=== PATIENT | female | born 1970 | race Caucasian/White ===

== ENCOUNTER → 2016-07-20 | Outpatient (REF) | payer MEDICARE, MEDICAID, SELFPAY | LOC: LAB 14:09 | PROVIDERS: Visit Provider Orthopaedic Surgery | DX: T84.59XD Infection and inflammatory reaction due to other internal joint prosthesis, subsequent encounter (principal) | CPT/HCPCS: 80202; 82565; 84460; 85025; 85651; 99058 ==

== ENCOUNTER 2019-08-07 11:47 | Emergency (ER) | payer MEDICARE, MEDICAID, SELFPAY ==
[2019-08-07 11:52] VITALS: BP 124/88; PULSE 84; RESP 18; TEMP 36.4; O2SAT 99
[2019-08-07 11:59] VITALS: BP 124/88; PULSE 84; RESP 18; TEMP 36.4; O2SAT 99; BMI 25.8
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
[2019-08-07] MEDS: TET,DIPH,PERTUSS(ACELL),VAC/PF 0.5 ML SYRINGE IM (12:44)
[2019-08-07] MEDS: KETOROLAC 60 MG/2 ML VIAL 30 MG IM (13:46)
[2019-08-07 14:10] VITALS: BP 133/76; PULSE 73; RESP 16; O2SAT 100
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
== END 2019-08-07 14:15 | disposition home or self-care (01) ==
PROVIDERS: Emergency Provider Nurse Practitioner Family; PCP Nurse Practitioner Family
DX: M54.2 Cervicalgia (principal); M25.562 Pain in left knee; M25.561 Pain in right knee; S09.90XA Unspecified injury of head, initial encounter; V89.2XXA Person injured in unspecified motor-vehicle accident, traffic, initial encounter; Z23 Encounter for immunization
CPT/HCPCS: 70450; 72125; 73560; 90471; 96372; 99283; 99284; 90715; J1885

== ENCOUNTER 2019-10-04 22:57 | Emergency (ER) | payer MEDICARE, MEDICAID, SELFPAY ==
[2019-10-04 23:03] VITALS: BP 131/86; PULSE 75; RESP 20; TEMP 36.4; O2SAT 98
--- NOTE | 2019-10-04 23:05 | ED.GENADULT ---
HPI - General Adult General Chief complaint: Extremity Injury, Lower Stated complaint: Possible femur fracture Time Seen by Provider: 10/04/19 23:04 History of Present Illness HPI narrative: 49-year-old woman with a history of bipolar disorder and asthma as well as multiple complicating orthopedic surgeries due to a left hip prosthesis presents with left femur pain concerned that the femurs broken. She initially had a left hip prosthesis placed, shortly after leaving hospital she had a periprosthetic fracture. A 2nd prosthesis with a longer femur section was then placed and developed osteomyelitis. She had multiple revision surgeries eventually had the entire prosthesis removed and has no hip joint on the left side. Has a right prosthetic hip as well. 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 She called 911 and was transported here for further evaluation. Her initial surgeries were done by orthopedic surgeon down at [facility], with whom she no longer follows up. Related Data Home Medications Medication Instructions Recorded Confirmed albuterol sulfate [Ventolin HFA] 1 puff INHALATION PRN PRN 08/07/19 08/07/19 cyclobenzaprine 10 mg PO Q4-6H PRN 08/07/19 08/07/19 divalproex 250 mg PO BID 08/07/19 08/07/19 quetiapine 400 mg PO DAILY 08/07/19 08/07/19 trazodone 300 mg PO DAILY 08/07/19 08/07/19 Previous Rx's Medication Instructions Recorded oxycodone-acetaminophen 1 - 2 tab PO Q4-6H PRN #40 tab MDD 10/05/19 8 tabs Allergies Allergy/AdvReac Type Severity Reaction Status Date / Time No Known Drug Allergies Allergy Verified 08/07/19 13:39 Review of Systems Review of Systems Narrative: Denies ? fever ? cough ? cold ? chills ? chest pain ? dyspnea ? orthopnea ? wheezing ? abdominal pain ? change to bowel or bladder habits ? nausea vomiting ? skin changes ? rashes Patient History Medical History (Updated 10/05/19 @ 00:12 by Sole Salazar MD) Asthma (Acute) Bipolar 1 disorder (Acute) Surgical History (Updated 10/05/19 @ 00:13 by Sole Salazar MD) History of hip surgery (Acute) History of hip surgery (Acute) Status post Girdlestone procedure (Acute) Social History Smoking Status: Current every day smoker Smoking Status: Current every day smoker tobacco type: cigarettes alcohol intake frequency: 0-2 drinks per day Substance Use Type: does not use Exam Narrative Exam Narrative: General: Alert appropriate in no acute distress Respiratory: Able to speak in full sentences, no obvious respiratory distress Skin: No obvious rashes, warm and dry Neurologic: Grossly intact no obvious asymmetries or abnormalities Psych, appropriate insight and affect, cooperative Extremity: Multiple surgical sites with multiple calcium deposits over the lower portion of leg. Neurovascularly intact. Step-off deformity the distal femur, left side Initial Vital Signs Initial Vital Signs: Vital Signs Temperature 97.5 F L 10/04/19 23:03 Pulse Rate 75 10/04/19 23:03 Respiratory Rate 20 10/04/19 23:03 Blood Pressure 131/86 10/04/19 23:03 Pulse Oximetry 98 10/04/19 23:03 Course Orders Ordered: ED Orders 10/04/19 23:12 XR femur LT min 2V Stat Discontinued Medications Ibuprofen (Advil) 400 mg PO NOW ONE Stop: 10/05/19 00:04 Last Admin: 10/05/19 00:07 Dose: 400 mg Documented by: Oxycodone/Acetaminophen (Percocet 5/325) 2 tab PO NOW ONE Stop: 10/05/19 00:04 Last Admin: 10/05/19 00:07 Dose: 2 tab Documented by: Oxycodone/Acetaminophen (Endocet 5/325 Prepack) 1 bottle MISC SEEINSTR ONE Stop: 10/05/19 00:04 Last Admin: 10/05/19 00:07 Dose: 1 bottle Documented by: Vital Signs Vital signs: Vital Signs - 8 hr 10/04/19 23:03 10/04/19 23:20 Temperature 97.5 F L Pulse Rate 75 Pulse Rate [Left Dorsalis Pedis] 75 Respiratory Rate 20 Blood Pressure 131/86 Pulse Oximetry 98 Medical Decision Making Imaging Data femur: Attestation: I personally reviewed and interpreted this imaging study as follows: My Impression: Midshaft spiral fracture without angulation, comminution, or displacement of the left femur. Surgical changes at the proximal left femur MDM Narrative Medical decision making narrative: Care is reviewed with Dr. Forte, on-call orthopedist. In light of the fact that she does not currently walk on this leg, is already in a wheelchair and has already figured out how to manipulate her leg without using leg muscles and in light of body habitus there really isn't much to do with splinting at this point. This is absolutely a nonsurgical fracture. Findings reviewed with patient who is fairly pragmatic. Discussed pain control. She denies prior issues with addiction in her opiate use disorder and states that Percocet has worked well with prior fractures. Will send her home knowing that she will not be weight-bearing, will be using her wheelchair and pain control for the fracture. Will ask her to follow-up with Bri Costello next week. Discharge Plan Departure Patient Disposition: Home Clinical Impression: Status post Girdlestone procedure Closed femur fracture Qualifiers: Encounter type: initial encounter Femur location: shaft Fracture morphology: spiral Fracture alignment: nondisplaced Laterality: left Qualified Code(s): S72.345A - Nondisplaced spiral fracture of shaft of left femur, initial encounter for closed fracture Instructions: DI for Fracture Activity Restrictions/Additional Instructions: Thank you for coming in today You did, in fact, break your femur on the left side. The term for the initial surgery you have that left you without a hip joint is called a girdlestone's pseudoarthrosis. Because of this splinting the mid shaft spiral fracture is really not going to be possible. Using a long leg immobilizer will put pressure exactly in the middle of the fracture and be more painful than no immobilization at all. You are going to need to be creative with how you move and shift your leg around to cause the least amount of pain. Using 400 mg of ibuprofen (2 [id number] pills) and 1 Tylenol every 6 hours can be very helpful in controlling pain. I am also going to give you a prescription for Percocet, you can substitute Percocet for the Tylenol for the 1st few days when the pain is most significant. A prescription for Percocet has been electronically transmitted to [facility] in [place] for you to supervisor picking crew tomorrow You will be needing her wheelchair and will not be able to bear any weight or use a like for transferring at all Please follow-up with Dr. Forte and [facility] next week. I wish you the best Prescriptions: New oxycodone-acetaminophen 5-325 mg tablet 1 - 2 tab PO Q4-6H MDD 8 tabs PRN (Reason: pain) Qty: 40 RF: 0 No Action cyclobenzaprine 10 mg tablet 10 mg PO Q4-6H PRN (Reason: Spasms) RF: 0 divalproex 250 mg tablet,delayed release (DR/EC) 250 mg PO BID RF: 0 trazodone 150 mg tablet 300 mg PO DAILY RF: 0 albuterol sulfate [Ventolin HFA] 90 mcg/actuation HFA aerosol inhaler 1 puff INHALATION PRN PRN (Reason: Shortness Of Breath) RF: 0 quetiapine 400 mg tablet 400 mg PO DAILY RF: 0 Referrals: Tashia Elias FNP-RADHA [Primary Care Provider] - Cole Forte MD [Physician] -
--- NOTE | 2019-10-04 23:12 | DI.RAD.S_ITS ---
PROCEDURE: XR FEMUR LT MIN 2V INDICATIONS: Fall , left femur pain TECHNIQUE: 2 views of the femur were acquired. COMPARISON: [facility], CR, XR PELVIS W LATERAL HIP RT, 03/18/2016, 19:21. [facility], CR, PELVIS W/LAT HIP (LT) (PNL), 03/23/2014, 8:53. FINDINGS: Bones: Minimally displaced transverse fracture of the distal left femur noted. Left femoral head and neck are absent. The femur is displaced proximally relative to the acetabulum. No suspicious bony lesions. Soft tissues: No suspicious soft tissue calcifications or masses. IMPRESSION: 1. Minimally displaced distal left femur transverse fracture. 2. Absent left femoral head and neck. Dictated by: Goldie Garrett MD, PhD on 10/05/2019 at 8:19 Approved by: Goldie Garrett MD, PhD on 10/05/2019 at 8:21
[2019-10-04 23:20] VITALS: PULSE 75
[2019-10-05] MEDS: IBUPROFEN 400 MG TABLET PO (00:07)
[2019-10-05] MEDS: OXYCODONE/APAP 5/325 PREPACK 1 BOTTLE MISC (00:07)
[2019-10-05] MEDS: OXYCODONE/ACETAMINOPHEN 5/325 TABLET 2 TAB PO (00:07)
[2019-10-05 02:19] VITALS: BP 144/66; PULSE 79; RESP 18; O2SAT 96
== END 2019-10-05 02:19 | disposition home or self-care (01) ==
PROVIDERS: Emergency Provider Emergency Medicine; PCP Nurse Practitioner Family
DX: S72.345A Nondisplaced spiral fracture of shaft of left femur, initial encounter for closed fracture (principal); Z98.890 Other specified postprocedural states
CPT/HCPCS: 73552; 99283